=== PATIENT | female | born 1940 | race Caucasian/White ===

== ENCOUNTER → 2016-12-15 | Outpatient (CLI) | payer OTHER ==
[~2016-12-15] MED LIST: ASPIRIN; ZOLP-158 PO
[2016-12-15 09:44] LABS: Urine Bilirubin Negative (Negative); Urine Blood TRACE /uL (Negative); Urine Color Yellow (Yellow); Urine Glucose Normal (Normal); Urine Ketone Negative (Negative); Urine Nitrite Negative (Negative); Urine RBC 2 /hpf (0 - 4); Urine Squamous Epithelial Cell FEW /hpf (<5); Urine Urobilinogen Normal (Negative); Urine pH 5.5 (5.0-8.0)
[2016-12-15 09:57] LABS: Basophils # (auto) 0.1 uL; Basophils % (auto) 0.9 % (0.0-2.0); Eosinophils # (auto) 0.1 uL; Eosinophils % (auto) 2.1 % (0.0-7.0); Hematocrit 39.5 % (36.0-46.0); Lymphocytes # (auto) 1.5 uL; Lymphocytes % (auto) 24.4 % (10.0-50.0); Mean Corpuscular Hemoglobin 29.9 pg (28.0-32.0); Mean Corpuscular Hgb Conc. 32.9 g/dL (32.0-36.0); Mean Corpuscular Volume 90.7 fL (80.0-100.0); Mean Platelet Volume 10.1 fL (7.4-10.4); Monocytes # (auto) 0.5 uL; Monocytes % (auto) 7.7 % (0.0-12.0); Neutrophils % (auto) 64.9 % (37.0-80.0); Platelet Count (auto) 205 10^3/uL (140-450); Red Cell Distribution Width 13.5 % (11.6-16.0); White Blood Cell 6.1 10^3/uL (4.4-10.8)
[2016-12-15 10:00] LABS: Partial Thromboplastin Time 28.7 sec (22.64-33.71); Prothrombin Time 10.8 sec (9.37-12.3)
[2016-12-15 10:03] LABS: Albumin 3.9 g/dL (3.4-5.0); Calcium 8.8 mg/dL (8.5-10.1); Total Protein 7.7 g/dL (6.4-8.2)
[2016-12-15 10:25] LABS: Vitamin B12 879 pg/mL (211-911)
[2016-12-15 10:26] LABS: Temperature: 24.3 C (20.0-25.0)
== END | disposition home or self-care (01) ==
LOC: LAB 09:13
PROVIDERS: ATTEND Internal Medicine
DX: I10 Essential (primary) hypertension (principal); Z01.812 Encounter for preprocedural laboratory examination; E78.00 Pure hypercholesterolemia, unspecified
CPT/HCPCS: 36415; 80053; 80061; 81001; 82043; 82306; 82607; 82746; 84439; 84443; 85025; 85610; 85652; 85730

== ENCOUNTER → 2017-03-17 | Outpatient (CLI) | payer OTHER ==
[2017-03-17 11:43] LABS: Basophils # (auto) 0.1 uL; Basophils % (auto) 0.9 % (0.0-2.0); CONDITION Y; Eosinophils # (auto) 0.1 uL; Eosinophils % (auto) 0.9 % (0.0-7.0); Hematocrit 39.1 % (36.0-46.0); Hemoglobin 13.2 g/dL (12.2-16.2); Lymphocytes # (auto) 1.8 uL; Lymphocytes % (auto) 20.8 % (10.0-50.0); Mean Corpuscular Hemoglobin 31.2 pg (28.0-32.0); Mean Corpuscular Hgb Conc. 33.8 g/dL (32.0-36.0); Mean Corpuscular Volume 92.6 fL (80.0-100.0); Monocytes # (auto) 0.7 uL; Monocytes % (auto) 7.9 % (0.0-12.0); Neutrophils # (auto) 6.1 uL; Neutrophils % (auto) 69.5 % (37.0-80.0); Platelet Count (auto) 225 10^3/uL (140-450); Red Cell Distribution Width 14.3 % (11.6-16.0); White Blood Cell 8.8 10^3/uL (4.4-10.8)
[2017-03-17 11:47] LABS: Urine Bilirubin Negative (Negative); Urine Blood Negative /uL (Negative); Urine Color Yellow (Yellow); Urine Glucose Normal (Normal); Urine Ketone Negative (Negative); Urine Nitrite Negative (Negative); Urine pH 5.5 (5.0-8.0)
[2017-03-17 11:51] LABS: INR 0.98 (0.9-1.15); Partial Thromboplastin Time 28.7 sec (22.64-33.71); Prothrombin Time 10.7 sec (9.37-12.3)
[2017-03-17 12:05] LABS: Albumin 3.8 g/dL (3.4-5.0); BUN/Creatinine Ratio 19.8; Bilirubin, Total 0.7 mg/dL (0.2-1.0); Calcium 8.8 mg/dL (8.5-10.1); Potassium 3.8 mmol/L (3.5-5.1); Total Protein 7.7 g/dL (6.4-8.2)
== END | disposition home or self-care (01) ==
LOC: LAB 11:17
PROVIDERS: ATTEND Specialist
DX: Z01.812 Encounter for preprocedural laboratory examination (principal); Z79.01 Long term (current) use of anticoagulants
CPT/HCPCS: 36415; 80053; 81003; 85025; 85610; 85730

== ENCOUNTER → 2017-05-23 | Outpatient (CLI) | payer OTHER | END | disposition home or self-care (01) | LOC: LAB 10:00 | PROVIDERS: ATTEND Physician Assistant | DX: L57.8 Other skin changes due to chronic exposure to nonionizing radiation (principal) ==

== ENCOUNTER → 2017-11-13 | Outpatient (CLI) | payer OTHER ==
[2017-11-13 09:45] LABS: Basophils # (auto) 0.1 uL; Eosinophils # (auto) 0.2 uL; Eosinophils % (auto) 2.9 % (0.0-7.0); Hematocrit 38.6 % (36.0-46.0); Hemoglobin 12.7 g/dL (12.2-16.2); Lymphocytes # (auto) 1.4 uL; Lymphocytes % (auto) 22.6 % (10.0-50.0); Mean Corpuscular Hemoglobin 30.5 pg (28.0-32.0); Mean Corpuscular Hgb Conc. 32.9 g/dL (32.0-36.0); Mean Corpuscular Volume 92.8 fL (80.0-100.0); Monocytes # (auto) 0.6 uL; Monocytes % (auto) 9.7 % (0.0-12.0); Neutrophils # (auto) 3.9 uL; Neutrophils % (auto) 63.8 % (37.0-80.0); Platelet Count (auto) 197 10^3/uL (140-450); Red Blood Cells 4.16 10^6/uL (4.0-5.20); Red Cell Distribution Width 13.2 % (11.8-14.3); White Blood Cell 6.2 10^3/uL (4.4-10.8)
[2017-11-13 10:07] LABS: Albumin 3.6 g/dL (3.4-5.0); BUN/Creatinine Ratio 20.7; Bilirubin, Total 0.9 mg/dL (0.2-1.0); Calcium 8.5 mg/dL (8.5-10.1); Total Protein 7.5 g/dL (6.4-8.2)
== END | disposition home or self-care (01) ==
LOC: LAB 09:19
PROVIDERS: ATTEND Internal Medicine
DX: I10 Essential (primary) hypertension (principal); L65.9 Nonscarring hair loss, unspecified
CPT/HCPCS: 36415; 80053; 80061; 84439; 84443; 85025

== ENCOUNTER → 2018-08-07 | Outpatient (CLI) | payer OTHER ==
[2018-08-07 09:44] LABS: Alanine Aminotransferase 18 U/L (13-56); Aspartate Aminotransferase 20 U/L (15-37); Cholesterol 193 mg/dL (< 200); HDL Cholesterol 57 mg/dL (40-59); LDL Cholesterol 123 mg/dL (< 100); Triglycerides 138 mg/dL (< 150)
== END | disposition home or self-care (01) ==
LOC: LAB 08:33
PROVIDERS: ATTEND Internal Medicine
DX: E78.00 Pure hypercholesterolemia, unspecified (principal)
CPT/HCPCS: 36415; 80061; 84450; 84460

== ENCOUNTER → 2019-04-02 | Outpatient (CLI) | payer OTHER ==
[2019-04-02 09:29] LABS: Urine Bacteria NONE SEEN /hpf (None Seen); Urine Blood Negative /uL (Negative); Urine WBC 9 /hpf (0 - 5)
[2019-04-02 09:36] LABS: Basophils # (auto) 0.1 uL; Eosinophils # (auto) 0.2 uL; Eosinophils % (auto) 3.6 % (0.0-7.0); Hematocrit 40.2 % (36.0-46.0); Hemoglobin 13.5 g/dL (12.2-16.2); Lymphocytes # (auto) 1.5 uL; Lymphocytes % (auto) 29.3 % (10.0-50.0); Mean Corpuscular Hemoglobin 30.2 pg (28.0-32.0); Mean Corpuscular Hgb Conc. 33.5 g/dL (32.0-36.0); Monocytes # (auto) 0.5 uL; Monocytes % (auto) 9.6 % (0.0-12.0); Neutrophils # (auto) 2.9 uL; Neutrophils % (auto) 56.5 % (37.0-80.0); Nucleated Red Blood Cells % 0.1 %; Platelet Count (auto) 186 10^3/uL (140-450); Red Blood Cells 4.46 10^6/uL (4.0-5.20); Red Cell Distribution Width 14.4 % (11.8-14.3); White Blood Cell 5.2 10^3/uL (4.4-10.8)
[2019-04-02 09:59] LABS: Albumin 3.5 g/dL (3.4-5.0); Potassium 4.2 mmol/L (3.5-5.1)
[2019-04-02 10:05] LABS: BUN/Creatinine Ratio 22.1; Bilirubin, Total 0.6 mg/dL (0.2-1.0); Calcium 8.7 mg/dL (8.5-10.1); Total Protein 7.6 g/dL (6.4-8.2)
== END | disposition home or self-care (01) ==
LOC: LAB 08:56
PROVIDERS: ATTEND Internal Medicine
DX: E78.5 Hyperlipidemia, unspecified (principal); I10 Essential (primary) hypertension
CPT/HCPCS: 36415; 80053; 80061; 81001; 82043; 84439; 84443; 85025; 85652

== ENCOUNTER → 2019-09-18 | Day surgery (SDC) | payer OTHER ==
[2019-09-16 14:46] LABS: Hematocrit 35.2 % (36.0-46.0); Hemoglobin 11.7 g/dL (12.2-16.2); Red Blood Cells 4.09 10^6/uL (4.0-5.20)
[2019-09-16 14:50] LABS: Mean Corpuscular Hemoglobin 28.6 pg (28.0-32.0); Mean Corpuscular Hgb Conc. 33.2 g/dL (32.0-36.0); Mean Corpuscular Volume 86.2 fL (80.0-100.0); Platelet Count (auto) 491 10^3/uL (140-450); Red Cell Distribution Width 13.5 % (11.8-14.3); White Blood Cell 11.4 10^3/uL (4.4-10.8)
[2019-09-16 14:51] LABS: Urine Bacteria NONE SEEN /hpf (None Seen); Urine Blood Negative /uL (Negative); Urine Hyaline Cast MANY /lpf (0 - 2); Urine Mucus FEW (None Seen); Urine Specific Gravity 1.022 (1.001-1.035); Urine WBC 12 /hpf (0 - 5)
[2019-09-16 14:58] LABS: Basophils % (manual) 0 (0.0-2.0); Blast Cells 0; Eosinophils % (manual) 0 (0-7); Myelocytes % 0; Promyelocytes % 0; Reactive Lymphocytes 0
[2019-09-16 15:06] LABS: Albumin 2.6 g/dL (3.4-5.0); Calcium 10.5 mg/dL (8.5-10.1)
[2019-09-16 15:08] LABS: BUN/Creatinine Ratio 23.4
[2019-09-16 15:11] LABS: Bilirubin, Total 0.5 mg/dL (0.2-1.0); Total Protein 8.5 g/dL (6.4-8.2)
[2019-09-16 15:57] LABS: INR 1.11 (0.9-1.15); Partial Thromboplastin Time 30.1 sec (23.64-32.05)
[2019-09-16 16:13] LABS: Band Neutrophils % (manual) 2; Lymphocytes % (manual) 13 (10.0-50.0); Metamyelocytes % 2; Monocytes % (manual) 3 (0-12)
[~2019-09-18] VITALS: Ht 165.1 cm; Wt 63.5 kg
[~2019-09-18] MED LIST changes: +ANAS1TAB7 PO; -ASPIRIN; +DexAMETHasone SOD PHOS 10MG/1ML VIAL INJ ONE; +EZET10TA22 PO; +HEPARIN 1,000 UNITS/ml 1ML VIAL ONE; +HEPARIN SODIUM (PORCINE) 5000 UNITS/ML 1ML VIAL ONE; +LABETALOL HCL 5 MG/ML 4ML SYRINGE IV PRN; +LEVOFLOXACIN 500MG 100 ML IV ONE; +LIDOCAINE 1% HCL (LOCAL ANESTH.) INJ 20ML MDV ONE; +LISI10TA6 PO; +METO25TA93 PO; +MIDAZOLAM HCL 1MG/1ML-2 ML VIAL IV PRN; +MIDAZOLAM HCL 1MG/1ML-2 ML VIAL ONE; +MIRT1TAB38 PO; +ONDANSETRON HCL 4 MG/2 ML VIAL IV PRN; +PROPOFOL 10 MG/ML 20 ML IV ONE; -ZOLP-158 PO; +ceFAZolin 1GM VL ONE; +ePHEDrine SULFATE 50 MG/ML AMP IV PRN; +fentaNYL CITRATE 100 MCG/2 ML VL IV PRN; +fentaNYL CITRATE 100 MCG/2 ML VL ONE
[2019-09-18 10:45] VITALS: BP 160/63
== END | disposition home or self-care (01) ==
LOC: SUR 07:31
PROVIDERS: ATTEND Surgery
DX: Z45.2 Encounter for adjustment and management of vascular access device (principal); C50.512 Malignant neoplasm of lower-outer quadrant of left female breast; I11.0 Hypertensive heart disease with heart failure; I50.9 Heart failure, unspecified; K21.9 Gastro-esophageal reflux disease without esophagitis; Z88.5 Allergy status to narcotic agent; Z88.0 Allergy status to penicillin; Z88.2 Allergy status to sulfonamides; Z88.8 Allergy status to other drugs, medicaments and biological substances; Z17.0 Estrogen receptor positive status [ER+]; Z90.710 Acquired absence of both cervix and uterus; Z79.899 Other long term (current) drug therapy; Z86.73 Personal history of transient ischemic attack (TIA), and cerebral infarction without residual deficits
CPT/HCPCS: 36415; 36561; 80053; 81001; 85007; 85027; 85610; 85730; 93005; C1788; J0690; J1100; J1644; J1956; J2001; J2250; J2704; J3010; J7040; 71045; J3490

== ENCOUNTER 2019-09-20 12:26 | Inpatient (IN) | payer OTHER ==
[~2019-09-20] VITALS: Ht 165.1 cm; Wt 67.2 kg
[~2019-09-20 12:26] MED LIST changes: -DexAMETHasone SOD PHOS 10MG/1ML VIAL INJ ONE; -HEPARIN 1,000 UNITS/ml 1ML VIAL ONE; -HEPARIN SODIUM (PORCINE) 5000 UNITS/ML 1ML VIAL ONE; -LABETALOL HCL 5 MG/ML 4ML SYRINGE IV PRN; -LEVOFLOXACIN 500MG 100 ML IV ONE; -LIDOCAINE 1% HCL (LOCAL ANESTH.) INJ 20ML MDV ONE; -MIDAZOLAM HCL 1MG/1ML-2 ML VIAL IV PRN; -MIDAZOLAM HCL 1MG/1ML-2 ML VIAL ONE; -MIRT1TAB38 PO; -ONDANSETRON HCL 4 MG/2 ML VIAL IV PRN; -PROPOFOL 10 MG/ML 20 ML IV ONE; -ceFAZolin 1GM VL ONE; -ePHEDrine SULFATE 50 MG/ML AMP IV PRN; -fentaNYL CITRATE 100 MCG/2 ML VL IV PRN; -fentaNYL CITRATE 100 MCG/2 ML VL ONE
[2019-09-20] MEDS ORDERED: SODIUM CHLORIDE 0.9% 500 ML IV ONE (12:55)
[2019-09-20 14:02] LABS: Hematocrit 31.7 % (36.0-46.0); Hemoglobin 10.3 g/dL (12.2-16.2); Mean Corpuscular Hemoglobin 27.8 pg (28.0-32.0); Mean Corpuscular Hgb Conc. 32.3 g/dL (32.0-36.0); Mean Corpuscular Volume 86.1 fL (80.0-100.0); Platelet Count (auto) 309 10^3/uL (140-450); Red Blood Cells 3.69 10^6/uL (4.0-5.20); Red Cell Distribution Width 13.4 % (11.8-14.3); White Blood Cell 13.9 10^3/uL (4.4-10.8)
[2019-09-20 14:09] LABS: Basophils % (manual) 0 (0.0-2.0); Blast Cells 0; Eosinophils % (manual) 0 (0-7); Promyelocytes % 0; Reactive Lymphocytes 0
[2019-09-20 14:20] LABS: Albumin 2.4 g/dL (3.4-5.0); Anion Gap 7 (5-15); Blood Urea Nitrogen 27 mg/dL (7-18); Calcium 9.5 mg/dL (8.5-10.1); Carbon Dioxide 27 mmol/L (21-32); Chloride 102 mmol/L (98-107); Glucose 97 mg/dL (74-106); Magnesium 2.3 mg/dL (1.6-2.6); Sodium 136 mmol/L (136-145)
[2019-09-20 14:26] LABS: Alanine Aminotransferase 42 U/L (13-56); Alkaline Phosphatase 143 U/L (45-117); Aspartate Aminotransferase 64 U/L (15-37); BUN/Creatinine Ratio 32.9; Bilirubin, Total 0.3 mg/dL (0.2-1.0); GFR African American 87 mL/min; GFR Non-African American 72 mL/min; Total Protein 7.1 g/dL (6.4-8.2)
[2019-09-20 16:09] LABS: Band Neutrophils % (manual) 5; Lymphocytes % (manual) 7 (10.0-50.0); Metamyelocytes % 2; Monocytes % (manual) 3 (0-12); Myelocytes % 1
[2019-09-20] MEDS ORDERED: ONDANSETRON HCL 4 MG/2 ML VIAL IV ONE (16:30)
[2019-09-20] MEDS ORDERED: MORPHINE SULF INJ 2 MG/ML SYRINGE 1ML IV ONE (16:30)
[2019-09-20] MEDS ORDERED: ACETAMINOPHEN 500 MG TAB PO PRN (17:45)
[2019-09-20] MEDS ORDERED: MORPHINE SULF INJ 2 MG/ML SYRINGE 1ML IV PRN (17:45)
[2019-09-20] MEDS ORDERED: LACTULOSE 20Gm/30ML SOLN PO PRN (17:45)
[2019-09-20] MEDS ORDERED: NITROGLYCERIN 0.4 MG SL TAB SL PRN (17:45)
[2019-09-20] MEDS ORDERED: ONDANSETRON HCL 4 MG/2 ML VIAL IV PRN (17:45)
[2019-09-20 17:50] LABS: Urine Bacteria NONE SEEN /hpf (None Seen); Urine Blood Negative /uL (Negative); Urine Hyaline Cast MOD /lpf (0 - 2); Urine Mucus FEW (None Seen); Urine Specific Gravity 1.021 (1.001-1.035); Urine WBC 4 /hpf (0 - 5)
[2019-09-20] MEDS: SODIUM CHLORIDE 0.9% 1,000 ML IV SCH (18:17)
[2019-09-20 20:00] VITALS: BP 155/77
[2019-09-20] MEDS ORDERED: cefTRIAXone 1GM/50ML D5W 50 ML IV ONE (20:15)
[2019-09-20] MEDS: traMADol HCL 50 MG TAB PO PRN (21:00)
[2019-09-20] MEDS: ATORVASTATIN 20 MG TAB PO SCH (21:00)
[2019-09-20] MEDS ORDERED: MIRT1TAB38 PO (21:37)
[2019-09-20] MEDS: TEMAZEPAM 15 MG CAP PO PRN (22:31)
[2019-09-20 22:40] VITALS: BP 146/77
[2019-09-21] MEDS: SODIUM CHLORIDE 0.9% 1,000 ML IV SCH ×2 (04:30→14:34)
[2019-09-21 05:39] VITALS: BP 140/70
--- NOTE | 2019-09-21 08:10 | NUR ---
URINE FOR URINE CULTURE SENT TO LAB.
[2019-09-21 09:00] VITALS: BP 132/69
[2019-09-21] MEDS: ASPirin 81 mg TAB PO SCH (09:50)
[2019-09-21] MEDS: cefTRIAXone 1GM/50ML D5W 50 ML IV SCH (09:50)
[2019-09-21] MEDS: ENOXAPARIN SOD 40 MG/0.4 ML SYRINGE SC SCH (09:50)
[2019-09-21] MEDS: traMADol HCL 50 MG TAB PO PRN ×2 (09:51→16:08)
--- NOTE | 2019-09-21 10:33 | NUR ---
CALLED DR TERAN, NOTIFIED MD OF CAROTID DOPPLER RESULTS 50 TO 69% OCCLUSION OF ICA, MD AWARE, NO NEW ORDERS.
[2019-09-21 13:00] VITALS: BP 136/68
--- NOTE | 2019-09-21 14:32 | NUR ---
ASKED [facility] CHEMIST TO CALL IN CARDIO AND NEURO CONSULTS. US AWARE.
[2019-09-21 17:00] VITALS: BP 167/79
[2019-09-21] MEDS: LABETALOL HCL 5 MG/ML ML 20ML VIAL IV PRN (17:20)
--- NOTE | 2019-09-21 19:20 | NUR ---
Opening Shift Note Received report from Vangie CASTILLO. Assumed care of patient, awake and alert. Dr. Gomez at bedside. No S/S of distress/SOB or pain. Instructed on POC and to call for assist PRN. Fall precaution measures in place, will continue to monitor for changes Q1hr and PRN.
[2019-09-21 22:00] VITALS: BP_SYST 146; BP_SYST 150; BP_SYST 156; BP_DIAS 70; BP_DIAS 78; BP_DIAS 80
[2019-09-21] MEDS ORDERED: LISINOPRIL 5 MG TAB PO ONE (22:00)
[2019-09-21] MEDS: ATORVASTATIN 20 MG TAB PO SCH (22:18)
[2019-09-22] VITALS (8 sets, daily range): BP systolic 132–183; BP diastolic 67–86
[2019-09-22] MEDS: SODIUM CHLORIDE 0.9% 1,000 ML IV SCH ×3 (00:40→20:05)
[2019-09-22] MEDS: LABETALOL HCL 5 MG/ML ML 20ML VIAL IV PRN (04:34)
[2019-09-22 06:34] LABS: Cholesterol 92 mg/dL (< 200); HDL Cholesterol 36 mg/dL (40-59); LDL Cholesterol 49 mg/dL (< 100); Triglycerides 74 mg/dL (< 150)
--- NOTE | 2019-09-22 07:20 | NUR ---
Opening Shift Note Assumed care of patient, awake and alert. No S/S of distress/SOB or pain. Instructed on POC and to call for assist PRN, will continue to monitor for changes Q1hr and PRN.
[2019-09-22] MEDS: ASPirin 81 mg TAB PO SCH (09:08)
[2019-09-22] MEDS: LISINOPRIL 5 MG TAB PO SCH (09:08)
[2019-09-22] MEDS: cefTRIAXone 1GM/50ML D5W 50 ML IV SCH (09:08)
[2019-09-22] MEDS: ENOXAPARIN SOD 40 MG/0.4 ML SYRINGE SC SCH (09:09)
[2019-09-22] MEDS: LORazepam 0.5 MG TAB PO PRN (10:21)
--- NOTE | 2019-09-22 13:00 | NUR ---
IV removal Left AC and right AC IV's leaking. IVs DC'd with clean sterile technique, catheter fully intact. Pressure dressing applied to site. Patient tolerated well. NOTE: []
--- NOTE | 2019-09-22 13:05 | NUR ---
IV insertion IV access obtained, via clean sterile technique by inserting 22 gauge catheter at right hand after 2 attempts. IV secured properly. No trauma to site. Patient tolerated well. NOTE: []
--- NOTE | 2019-09-22 19:00 | NUR ---
Opening Shift Note Received shift report from Amy CASTILLO. Assumed care of patient, awake and alert. No S/S of distress/SOB. Instructed on POC and to call for assist PRN, will continue to monitor for changes Q1hr and PRN. Bed in lowest locked position, side rails up x2, call light within reach. Will continue to monitor
[2019-09-22] MEDS: traMADol HCL 50 MG TAB PO PRN (19:47)
--- NOTE | 2019-09-22 19:49 | NUR ---
PAIN MANAGEMENT PATIENT STATING PAIN IN BACK. PATIENT REPOSITIONED FOR COMFORT, PAIN MEDICATION ADMINISTERED PER MD ORDER
[2019-09-22] MEDS: ATORVASTATIN 20 MG TAB PO SCH (21:42)
[2019-09-23] VITALS (8 sets, daily range): BP systolic 122–163; BP diastolic 53–87
--- NOTE | 2019-09-23 03:00 | NUR ---
Assumed care of patient Received report from Akilah RN. Patient currently sleeping, even respirations noted. No S/S of distress/SOB or pain. Bed in lowest locked position, call light within reach, side rails up x2, fall precautions in place. Will continue to monitor for changes Q1hr and PRN.
--- NOTE | 2019-09-23 03:04 | NUR ---
CARE ENDORSED TO BRAEDEN
[2019-09-23] MEDS: SODIUM CHLORIDE 0.9% 1,000 ML IV SCH ×3 (05:32→23:25)
--- NOTE | 2019-09-23 07:50 | NUR ---
Morning Note Assumed care of patient, resting with eyes closed. Respirations are even and unlabored. No S/S of distress noted. Bed in lowest position, breaks locked, side rails up x2, call light with in reach, bed alarm on. Will continue to monitor for changes Q1hr and PRN.
[2019-09-23] MEDS: LISINOPRIL 5 MG TAB PO SCH (08:57)
[2019-09-23] MEDS: ASPirin 81 mg TAB PO SCH (08:58)
[2019-09-23] MEDS: ENOXAPARIN SOD 40 MG/0.4 ML SYRINGE SC SCH (08:58)
[2019-09-23] MEDS: traMADol HCL 50 MG TAB PO PRN ×3 (10:23→22:11)
[2019-09-23] MEDS: cefTRIAXone 1GM/50ML D5W 50 ML IV SCH (12:35)
--- NOTE | 2019-09-23 14:21 | NUR ---
assessment Patient is a 79 year old female who is alert and oriented. Prior to admission patient lived home alone and functioned independently. Patient informed me she was walking in the hallway and felt dizzy and then fell on the floor. Patient informed me she did not pass out, but she could not get off the floor until her friend came and helped her up. Patient has a fww and a cane for home use. Patient will need a PT eval to determin her home health needs. Patient informed me she feels safe returning home on discharge. Patients PCP is Dr De Luna. Patient verbalized understanding and agreed to discharge plan home. Addendum: 09/23/19 at 1424 by Miryam AHN Amended: Links added.
--- NOTE | 2019-09-23 16:53 | NUR ---
Patient refusing orthostatic vital signs at this time. Patient educated on importance. Patient verbalized understanding. Patient still refused.
--- NOTE | 2019-09-23 16:53 | NUR ---
EEG-Electroencephalogram completed on 09/23/2019.
[2019-09-23] MEDS: ATORVASTATIN 20 MG TAB PO SCH (22:10)
[2019-09-24] VITALS (7 sets, daily range): BP systolic 122–164; BP diastolic 57–81
[2019-09-24] MEDS: LABETALOL HCL 5 MG/ML ML 20ML VIAL IV PRN (05:25)
--- NOTE | 2019-09-24 07:35 | NUR ---
Opening Shift Note Assumed care of patient, awake and alert. No S/S of distress/SOB or pain reported at this time. Instructed on POC and to call for assist PRN, call light within reach, will continue to monitor for changes Q1hr and PRN.
--- NOTE | 2019-09-24 08:43 | NUR ---
D/C Planning Per consult for safety evaluation. Order was review and approved by ANABELLE Addison. Contact [facility] Ph:) Fax:) faxed medical records. Per Isabella from [facility] patient has been accepted and service to start within 24-48hrs upon d/c day. Faxed medical records with authorization # form to [facility] Fax;). Addendum: 09/24/19 at 0847 by POLO LEVY Amended: Links added.
--- NOTE | 2019-09-24 09:30 | NUR ---
ACTIVITY PT ASSISTED TO BSC, PT TOLERATED ACTIVITY, ASSISTED BACK TO BED, BED ALARM ACTIVATED AND CALL LIGHT WITHIN REACH
[2019-09-24] MEDS: cefTRIAXone 1GM/50ML D5W 50 ML IV SCH (10:11)
[2019-09-24] MEDS: LISINOPRIL 5 MG TAB PO SCH (10:12)
[2019-09-24] MEDS: SODIUM CHLORIDE 0.9% 1,000 ML IV SCH ×2 (11:32→21:45)
[2019-09-24] MEDS: LORazepam 0.5 MG TAB PO PRN (11:40)
--- NOTE | 2019-09-24 12:15 | NUR ---
PT OFF UNIT/TESTING ANALYST PT TAKEN TO TESTING ANALYST VIA BED, PT AXOX4, NO DISTRESS NOTED AT THIS TIME, CONSENTS SIGNED AND VERIFIED, IV PATENT TO RIGHT WRIST, REPORT GIVEN TO KVNG TESTING ANALYST RN
[2019-09-24] MEDS ORDERED: fentaNYL CITRATE 100 MCG/2 ML VL IV ONE (12:30)
[2019-09-24] MEDS ORDERED: LIDOCAINE VISCOUS 2% 15ML UD PO ONE (12:30)
[2019-09-24] MEDS ORDERED: MIDAZOLAM HCL 1MG/1ML-2 ML VIAL IV ONE (12:30)
--- NOTE | 2019-09-24 13:35 | NUR ---
patient was in procedure for 1300 vitals
--- NOTE | 2019-09-24 14:10 | NUR ---
S/P I[facility]AN PT BACK FROM [employer], PT AWAKE AXOX4, NO DISTRESS NOTED, NO C/O PAIN, SOB OR ANY OTHER DISCOMFORT, VS 160/79, P 90, O2 ON 2L VIA NC 98%, RR 18, PAGED REGARDING ELEVATED BP, SPOKE WITH DR TERAN AND ORDERS RECEIVED FOR METOPROLOL SUCC 50MG PO DAILY, RBO AND VERIFIED, CONT CARE
[2019-09-24] MEDS ORDERED: HYDROcodone-ACET 10/325MG TAB PO PRN (17:15)
[2019-09-24] MEDS ORDERED: METOPROLOL SUCCINATE XL 50 MG TAB PO ONE (17:30)
[2019-09-24] MEDS: ASPirin 81 mg TAB PO SCH (17:34)
[2019-09-24] MEDS: ENOXAPARIN SOD 40 MG/0.4 ML SYRINGE SC SCH (17:34)
[2019-09-24] MEDS: ATORVASTATIN 20 MG TAB PO SCH (21:45)
[2019-09-24] MEDS: TEMAZEPAM 15 MG CAP PO PRN (21:45)
[2019-09-25 04:29] VITALS: BP_SYST 133; BP_SYST 148; BP_DIAS 54; BP_DIAS 64
--- NOTE | 2019-09-25 07:15 | NUR ---
Opening Shift Note Assumed care of patient, awake and alert. No S/S of distress/SOB or pain. Instructed on POC and to call for assist PRN, will continue to monitor for changes Q1hr and PRN. call light within reach.
[2019-09-25 08:00] VITALS: BP 159/59
[2019-09-25 08:30] VITALS: BP_SYST 159; BP_SYST 160; BP_DIAS 59; BP_DIAS 80
[2019-09-25] MEDS: cefTRIAXone 1GM/50ML D5W 50 ML IV SCH (09:07)
--- NOTE | 2019-09-25 09:30 | NUR ---
ROUNDS Dr Elvis Powell at bedside for rounds, new orders received and followed through. Patient updated on plan of care, verbalized understanding.
[2019-09-25] MEDS: ASPirin 81 mg TAB PO SCH (09:56)
[2019-09-25] MEDS ORDERED: METOPROLOL SUCCINATE XL 50 MG TAB PO SCH (10:00)
[2019-09-25] MEDS: ENOXAPARIN SOD 40 MG/0.4 ML SYRINGE SC SCH (10:51)
[2019-09-25] MEDS: LISINOPRIL 5 MG TAB PO SCH (10:52)
[2019-09-25 12:54] VITALS: BP 159/59
== END 2019-09-25 14:45 | disposition home health service (06) | DRG 872 ==
LOC: ER 12:26 → EDBD 12:26 → TELE 12:27 → TELE-CENTR 19:59
PROVIDERS: ADMIT Internal Medicine; ATTEND Family Medicine
PROC: B246ZZ4 Ultrasonography of Right and Left Heart, Transesophageal (ICD-10-PCS; principal; 2019-09-24)
DX: A41.9 Sepsis, unspecified organism (principal); G45.9 Transient cerebral ischemic attack, unspecified; N39.0 Urinary tract infection, site not specified; E44.0 Moderate protein-calorie malnutrition; E86.0 Dehydration; C50.919 Malignant neoplasm of unspecified site of unspecified female breast; W18.39XA Other fall on same level, initial encounter; E78.5 Hyperlipidemia, unspecified; M47.892 Other spondylosis, cervical region; Z68.24 Body mass index [BMI] 24.0-24.9, adult; Z90.710 Acquired absence of both cervix and uterus; Z88.2 Allergy status to sulfonamides; Z88.8 Allergy status to other drugs, medicaments and biological substances; Z88.0 Allergy status to penicillin; Y93.89 Activity, other specified; Y92.89 Other specified places as the place of occurrence of the external cause; Y99.8 Other external cause status; Z88.5 Allergy status to narcotic agent
CPT/HCPCS: 36415; 70450; 70551; 72125; 80053; 80061; 81001; 82962; 83735; 84484; 85007; 85027; 87081; 87086; 93005; 93312; 93886; 95819; 97116; 97530; 99152; G0378; J0696; J2250; J2405

== ENCOUNTER 2019-10-04 20:15 | Inpatient (IN) | payer OTHER ==
[~2019-10-04] VITALS: Ht 165.1 cm; Wt 59.7 kg
--- NOTE | 2019-10-04 19:00 | NUR ---
Report from Babita CASTILLO awaiting [facility] admit [facility]
[2019-10-04 19:15] VITALS: BP 108/51
--- NOTE | 2019-10-04 19:17 | NUR ---
[place] TON[place] [facility] [place]
--- NOTE | 2019-10-04 19:45 | NUR ---
Paged at home independent call center agent for admit orders awaiting call back
[~2019-10-04 20:15] MED LIST changes: +MIRT1TAB38 PO
--- NOTE | 2019-10-04 20:20 | NUR ---
Paged Hospitalist Tolu for admit orders awaiting call back
--- NOTE | 2019-10-04 20:30 | NUR ---
Tolu called back, Informed that Direct admit was here at 1917 from [facility], Dr Srivastava admit. for PNA. Tolu stated, " bring me the chart and I will admit her later."
--- NOTE | 2019-10-04 20:45 | NUR ---
QUEENIE Motley at nurses station, Gave patient chart, awaiting orders.
--- NOTE | 2019-10-04 20:50 | NUR ---
Hospitalist at bedside speaking to patient, orders received for STAT Chest X Ray and 12 lead EKG.
[2019-10-04 21:51] VITALS: BP 133/69
[2019-10-04 22:00] VITALS: BP 133/69
--- NOTE | 2019-10-04 22:30 | NUR ---
Tolu calls Nurses station , informed patient requesting sleeping pill, Orders received for 15mg Restoril HS
[2019-10-04 22:32] LABS: Hematocrit 24.8 % (36.0-46.0); Hemoglobin 8.3 g/dL (12.2-16.2); Mean Corpuscular Hemoglobin 27.5 pg (28.0-32.0); Mean Corpuscular Hgb Conc. 33.3 g/dL (32.0-36.0); Mean Corpuscular Volume 82.5 fL (80.0-100.0); Platelet Count (auto) 94 10^3/uL (140-450); Red Blood Cells 3.01 10^6/uL (4.0-5.20)
[2019-10-04 22:42] LABS: Alanine Aminotransferase 20 U/L (13-56); Albumin 1.9 g/dL (3.4-5.0); Anion Gap 5 (5-15); Blood Urea Nitrogen 13 mg/dL (7-18); Calcium 7.6 mg/dL (8.5-10.1); Carbon Dioxide 32 mmol/L (21-32); Chloride 100 mmol/L (98-107); Glucose 94 mg/dL (74-106); Potassium 3.2 mmol/L (3.5-5.1); Sodium 137 mmol/L (136-145)
[2019-10-04 22:47] LABS: Alkaline Phosphatase 100 U/L (45-117); Aspartate Aminotransferase 49 U/L (15-37); BUN/Creatinine Ratio 18.1; Bilirubin, Total 0.4 mg/dL (0.2-1.0); GFR African American 101 mL/min; GFR Non-African American 83 mL/min; Total Protein 5.8 g/dL (6.4-8.2)
[2019-10-04 23:06] LABS: White Blood Cell 1.7 10^3/uL (4.4-10.8)
[2019-10-04 23:08] LABS: Basophils % (manual) 0 (0.0-2.0); Blast Cells 0; Eosinophils % (manual) 0 (0-7); Promyelocytes % 0; Reactive Lymphocytes 0
--- NOTE | 2019-10-04 23:10 | NUR ---
Critical Lab called QUEENIE Motley
--- NOTE | 2019-10-04 23:15 | NUR ---
QUEENIE Motley called back informed og critical WBC of 1.7 and informed of patient VTE assessment score of 3, No new orders at this time.
[2019-10-05 00:01] LABS: Urine Amorphous Crystal FEW /hpf (None Seen); Urine Bacteria FEW /hpf (None Seen); Urine Blood 1+ /uL (Negative); Urine Mucus FEW (None Seen); Urine Specific Gravity 1.015 (1.001-1.035); Urine WBC 20 /hpf (0 - 5)
[2019-10-05 00:04] LABS: Band Neutrophils % (manual) 12; Lymphocytes % (manual) 32 (10.0-50.0); Metamyelocytes % 1; Monocytes % (manual) 11 (0-12); Myelocytes % 1
[2019-10-05] MEDS ORDERED: TEMAZEPAM 15 MG CAP PO PRN (00:45)
[2019-10-05] MEDS ORDERED: NITROGLYCERIN 0.4 MG SL TAB SL PRN (00:45)
[2019-10-05] MEDS ORDERED: MORPHINE SULF INJ 2 MG/ML SYRINGE 1ML IV PRN ×2 (00:45→08:30)
[2019-10-05] MEDS ORDERED: ONDANSETRON HCL 4 MG/2 ML VIAL IV PRN (00:45)
[2019-10-05] MEDS: TEMAZEPAM 15 MG CAP PO PRN (00:47)
[2019-10-05 05:31] VITALS: BP 138/64
--- NOTE | 2019-10-05 06:53 | NUR ---
IV insertion IV access obtained, via clean sterile technique by inserting 20 gauge catheter at left AC after 1 attempt. IV secured properly. No trauma to site. Patient tolerated well.
[2019-10-05] MEDS ORDERED: SODIUM CHLORIDE 0.9% 500 ML IV ONE (07:15)
--- NOTE | 2019-10-05 08:00 | NUR ---
Opening Shift Note Assumed care of patient, who is alert and oriented x4. No S/S of distress/SOB or pain. Bed is low, locked with 2x side rails up. Call light is within reach. Instructed on POC and to call for assist PRN, will continue to monitor for changes Q1hr and PRN.
[2019-10-05 09:00] VITALS: BP 114/0
[2019-10-05 09:31] LABS: White Blood Cell 2.2 10^3/uL (4.4-10.8)
[2019-10-05 09:33] LABS: Hematocrit 25.1 % (36.0-46.0); Hemoglobin 8.3 g/dL (12.2-16.2); Mean Corpuscular Hemoglobin 27.5 pg (28.0-32.0); Mean Corpuscular Hgb Conc. 32.9 g/dL (32.0-36.0); Mean Corpuscular Volume 83.7 fL (80.0-100.0); Platelet Count (auto) 84 10^3/uL (140-450); Red Cell Distribution Width 13.9 % (11.8-14.3)
[2019-10-05 09:40] LABS: Basophils % (manual) 0 (0.0-2.0); Blast Cells 0; Metamyelocytes % 0; Promyelocytes % 0; Reactive Lymphocytes 0
[2019-10-05 09:46] LABS: Calcium 7.4 mg/dL (8.5-10.1); Magnesium 2.1 mg/dL (1.6-2.6); Potassium 3.3 mmol/L (3.5-5.1)
[2019-10-05] MEDS ORDERED: IOHEXOL 350 MG/ML 100ML IJ ONE (09:47)
[2019-10-05 09:50] LABS: BUN/Creatinine Ratio 18.9
[2019-10-05] MEDS ORDERED: LEVOFLOXACIN 750MG 150 ML IV SCH (10:00)
[2019-10-05] MEDS ORDERED: ENOXAPARIN SOD 40 MG/0.4 ML SYRINGE SC SCH (10:00)
[2019-10-05] MEDS: LEVOFLOXACIN 750MG 150 ML IV SCH (10:27)
[2019-10-05] MEDS: SODIUM CHLORIDE 0.9% 1,000 ML IV SCH (10:27)
[2019-10-05] MEDS: FAMOTIDINE 20 MG TAB PO SCH (10:27)
[2019-10-05 11:52] LABS: Band Neutrophils % (manual) 10; Eosinophils % (manual) 2 (0-7); Lymphocytes % (manual) 18 (10.0-50.0); Monocytes % (manual) 11 (0-12)
[2019-10-05 11:53] LABS: Myelocytes % 2
[2019-10-05 13:00] VITALS: BP 120/65
[2019-10-05 17:28] VITALS: BP 134/76
--- NOTE | 2019-10-05 19:21 | NUR ---
Opening Shift Note Assumed care of patient. Patient is awake and alert. No S/S of distress/SOB or pain. Bed is in lowest position with side rails up x 2. Bed brakes are locked and call light is with in reach. HOB is 30 degrees. Instructed on POC and to call for assist PRN, will continue to monitor for changes Q1hr and PRN.
[2019-10-05 22:00] VITALS: BP 145/76
[2019-10-06 05:00] VITALS: BP 150/73
[2019-10-06 05:35] LABS: Hematocrit 22.8 % (36.0-46.0); Mean Corpuscular Volume 83.9 fL (80.0-100.0)
[2019-10-06 05:41] LABS: Hemoglobin 7.6 g/dL (12.2-16.2); Mean Corpuscular Hemoglobin 27.8 pg (28.0-32.0); Mean Corpuscular Hgb Conc. 33.1 g/dL (32.0-36.0); Platelet Count (auto) 95 10^3/uL (140-450); Red Blood Cells 2.72 10^6/uL (4.0-5.20); Red Cell Distribution Width 13.9 % (11.8-14.3); White Blood Cell 3.6 10^3/uL (4.4-10.8)
[2019-10-06 05:46] LABS: BUN/Creatinine Ratio 21.9; Calcium 7.3 mg/dL (8.5-10.1); Potassium 3.5 mmol/L (3.5-5.1)
[2019-10-06 05:50] LABS: Basophils % (manual) 0 (0.0-2.0); Blast Cells 0; Promyelocytes % 0; Reactive Lymphocytes 0
[2019-10-06 06:42] LABS: Band Neutrophils % (manual) 8; Eosinophils % (manual) 3 (0-7); Lymphocytes % (manual) 11 (10.0-50.0); Metamyelocytes % 1; Monocytes % (manual) 14 (0-12); Myelocytes % 1
--- NOTE | 2019-10-06 07:17 | NUR ---
closing notes endorsed care to day shift nurseSarmad.
--- NOTE | 2019-10-06 08:33 | NUR ---
Opening Shift Note Resumed care of patient. Alert and oriented x4. No S/S of distress/SOB or pain. Bed is low, locked with 2x side rails up. Call light is within reach. Instructed on POC and to call for assist PRN, will continue to monitor for changes Q1hr and PRN.
[2019-10-06 09:00] VITALS: BP 139/76
[2019-10-06] MEDS: SODIUM CHLORIDE 0.9% 1,000 ML IV SCH ×2 (09:54→10:01)
[2019-10-06] MEDS: ENOXAPARIN SOD 40 MG/0.4 ML SYRINGE SC SCH (09:55)
[2019-10-06] MEDS: FAMOTIDINE 20 MG TAB PO SCH (09:55)
[2019-10-06] MEDS: LEVOFLOXACIN 750MG 150 ML IV SCH ×2 (09:55→10:00)
[2019-10-06 13:00] VITALS: BP 103/62
[2019-10-06 13:40] LABS: Hemoglobin 8.2 g/dL (12.2-16.2)
[2019-10-06 13:42] LABS: Mean Corpuscular Hemoglobin 27.4 pg (28.0-32.0); Mean Corpuscular Hgb Conc. 32.7 g/dL (32.0-36.0); Mean Corpuscular Volume 83.6 fL (80.0-100.0); Platelet Count (auto) 103 10^3/uL (140-450); Red Blood Cells 2.99 10^6/uL (4.0-5.20); Red Cell Distribution Width 14.3 % (11.8-14.3); White Blood Cell 4.5 10^3/uL (4.4-10.8)
--- NOTE | 2019-10-06 13:43 | NUR ---
NUTRITION CONSULT/ASSESSMENT NOTES Please refer to link notes of nutrition screen form filed under the intervention section of the plan of care for further details. Est. Needs: 1850 kcal to 2150 kcal (30-35 kcal/kgBW), 62 gms to 92 gms pro (1.0-1.5 gms/kgBW d/t CA, severe hypoalbuminemia). Will continue to monitor pertinent labs and reassess nutrient need prn Thank you for this consult. Addendum: 10/06/19 at [address] Amended: Links added.
[2019-10-06 13:45] LABS: Basophils % (manual) 0 (0.0-2.0); Blast Cells 0; Eosinophils % (manual) 0 (0-7); Promyelocytes % 0; Reactive Lymphocytes 0
[2019-10-06 14:05] LABS: Calcium 7.3 mg/dL (8.5-10.1); Potassium 3.5 mmol/L (3.5-5.1)
[2019-10-06 14:10] LABS: BUN/Creatinine Ratio 17.9; Bilirubin, Total 0.4 mg/dL (0.2-1.0); Total Protein 5.5 g/dL (6.4-8.2)
[2019-10-06 14:14] LABS: Band Neutrophils % (manual) 4; Lymphocytes % (manual) 9 (10.0-50.0); Metamyelocytes % 3; Myelocytes % 3
[2019-10-06 14:15] LABS: Monocytes % (manual) 7 (0-12)
[2019-10-06] MEDS ORDERED: DOCUSATE SOD 100 MG CAP PO ONE (14:45)
[2019-10-06 15:09] LABS: % Iron Saturation 37.1 % (15-50)
[2019-10-06] MEDS ORDERED: LACTULOSE 20Gm/30ML SOLN PO ONE (16:15)
[2019-10-06 17:18] VITALS: BP 136/65
--- NOTE | 2019-10-06 20:00 | NUR ---
Opening Shift Note Assumed care of patient, awake and alert. No S/S of distress/SOB or pain. Instructed on POC and to call for assist PRN, will continue to monitor for changes Q1hr and PRN.
[2019-10-06 22:00] VITALS: BP 157/73
[2019-10-06] MEDS: DOCUSATE SOD 100 MG CAP PO SCH (22:00)
[2019-10-06] MEDS: LACTULOSE 20Gm/30ML SOLN PO SCH (22:00)
[2019-10-06] MEDS: TEMAZEPAM 15 MG CAP PO PRN (22:44)
[2019-10-06] MEDS: ACETAMINOPHEN 325 MG TAB PO PRN (22:46)
[2019-10-07] MEDS: SODIUM CHLORIDE 0.9% 1,000 ML IV SCH ×3 (02:52→22:10)
[2019-10-07 05:00] VITALS: BP 149/72
--- NOTE | 2019-10-07 07:18 | NUR ---
Report given to Waldo Parra,patient is resting no distress.
[2019-10-07 09:00] VITALS: BP 152/83
[2019-10-07 09:54] LABS: Ferritin > 1650.0 ng/mL (10-322)
[2019-10-07 09:55] LABS: Folate (Folic Acid) 14.17 ng/mL (5.38-24)
[2019-10-07] MEDS: DOCUSATE SOD 100 MG CAP PO SCH ×2 (10:00→22:00)
[2019-10-07] MEDS: LACTULOSE 20Gm/30ML SOLN PO SCH ×2 (10:00→22:00)
[2019-10-07] MEDS: LEVOFLOXACIN 750MG 150 ML IV SCH (10:17)
[2019-10-07] MEDS: ENOXAPARIN SOD 40 MG/0.4 ML SYRINGE SC SCH (10:17)
[2019-10-07] MEDS: FAMOTIDINE 20 MG TAB PO SCH (10:17)
[2019-10-07] MEDS: Ensure HIGH Protein Chocolate 8oz Bottle PO SCH ×2 (12:09→18:08)
[2019-10-07 13:00] VITALS: BP 154/74
--- NOTE | 2019-10-07 14:57 | NUR ---
assessment re: fara consults Patient is a 79 year old female who is alert and oriented. Prior to admission patient lived home alone and functioned independently, but now needs assistance. Patient informed me she was re-admitted for feeling dizzy and weak. Patient has a fww and a cane for home use. Patient informed me she may need assisted living or board and care on discharge. I provided patient with board and care and assisted living resources. Patient also wanted to speak with someone regarding hospice for info only until she makes up her mind on what she will do on discharge. Claudia from [facility] will meet with patient at bedside to explain hospice at 3pm. Patients PCP is Dr De Luna. Patient verbalized understanding and agreed to discharge plan home. Addendum: 10/07/19 at 1501 by Miryam AHN Amended: Links added.
[2019-10-07] MEDS: MECLIZINE HCL 25 MG TAB PO SCH ×2 (14:58→22:00)
[2019-10-07 16:33] VITALS: BP 158/84
[2019-10-07] MEDS: ACETAMINOPHEN 325 MG TAB PO PRN (18:33)
--- NOTE | 2019-10-07 19:34 | NUR ---
Opening Shift Note Received report and assumed care of patient. Patient is awake and alert. No signs or symptoms of distress noted. Instructed patient on plan of care and to call for assistance as needed. Will continue to monitor.
--- NOTE | 2019-10-07 21:01 | NUR ---
IV removal 20g IV to the Right AC leaking. Discontinued IV with clean technique, catheter tip fully intact. Pressure dressing applied to site. Patient tolerated well. NOTE: Patient has 20g IV to the Left AC in place already.
[2019-10-07 22:00] VITALS: BP 146/62
[2019-10-07] MEDS: TEMAZEPAM 15 MG CAP PO PRN (22:11)
[2019-10-08] MEDS: ACETAMINOPHEN 325 MG TAB PO PRN ×2 (04:10→22:20)
[2019-10-08 05:30] VITALS: BP 154/86
[2019-10-08 05:53] LABS: Hemoglobin 7.6 g/dL (12.2-16.2); Platelet Count (auto) 146 10^3/uL (140-450); Red Cell Distribution Width 14.6 % (11.8-14.3); White Blood Cell 4.6 10^3/uL (4.4-10.8)
[2019-10-08 05:55] LABS: Hematocrit 22.8 % (36.0-46.0); Mean Corpuscular Hgb Conc. 33.1 g/dL (32.0-36.0); Mean Corpuscular Volume 84.6 fL (80.0-100.0)
[2019-10-08 06:08] LABS: Basophils % (manual) 0 (0.0-2.0); Blast Cells 0; Metamyelocytes % 0; Myelocytes % 0; Promyelocytes % 0; Reactive Lymphocytes 0
[2019-10-08 06:10] LABS: Calcium 7.5 mg/dL (8.5-10.1); Potassium 3.1 mmol/L (3.5-5.1)
[2019-10-08 06:13] LABS: BUN/Creatinine Ratio 11.6
[2019-10-08 06:34] LABS: Band Neutrophils % (manual) 4; Eosinophils % (manual) 1 (0-7); Lymphocytes % (manual) 3 (10.0-50.0); Monocytes % (manual) 6 (0-12)
[2019-10-08] MEDS: MECLIZINE HCL 25 MG TAB PO SCH ×3 (07:01→22:19)
[2019-10-08] MEDS: Ensure HIGH Protein Chocolate 8oz Bottle PO SCH ×3 (07:29→17:56)
[2019-10-08 09:00] VITALS: BP 147/77
[2019-10-08] MEDS ORDERED: POTASSIUM EFFERVESENT TAB 25 MEQ PO ONE (10:00)
[2019-10-08] MEDS: DOCUSATE SOD 100 MG CAP PO SCH ×2 (10:00→22:00)
[2019-10-08] MEDS: LACTULOSE 20Gm/30ML SOLN PO SCH ×2 (10:00→22:00)
[2019-10-08] MEDS: FAMOTIDINE 20 MG TAB PO SCH (10:07)
[2019-10-08] MEDS: SODIUM CHLORIDE 0.9% 1,000 ML IV SCH ×2 (10:07→22:45)
[2019-10-08] MEDS: LEVOFLOXACIN 750MG 150 ML IV SCH (10:07)
[2019-10-08] MEDS: APIXABAN 5 MG TAB PO SCH ×2 (10:45→22:20)
--- NOTE | 2019-10-08 12:00 | NUR ---
SS - information Left a message for Miryam in SS regarding patient wanting information on in-home care. Dr. Barron agreed with the patient that she would need extra help at home 27/03 as she lives alone. He also readdressed the need for the patient to move into a facility for 24 hour care. She agreed and said she would speak with her step daughter. Patient also stated she wants to start hospice.
[2019-10-08 13:00] VITALS: BP 144/72
[2019-10-08] MEDS: LORazepam 0.5 MG TAB PO PRN (15:36)
[2019-10-08 16:52] VITALS: BP 157/96
--- NOTE | 2019-10-08 17:03 | NUR ---
re-assessment Patient has decided to return home with 24 hour care after speaking with Dr Barron today. I will meet with patient in the morning to discuss details. Addendum: 10/08/19 at 1704 by Miryam AHN Amended: Links added.
[2019-10-08 17:54] LABS: Hematocrit 26.8 % (36.0-46.0); Hemoglobin 8.9 g/dL (12.2-16.2)
--- NOTE | 2019-10-08 19:29 | NUR ---
Opening Shift Note Received report and assumed care of patient. Patient is awake and alert. No signs or symptoms of distress noted. Family at bedside. Instructed patient on plan of care and to call for assistance as needed. Will continue to monitor.
[2019-10-08 22:00] VITALS: BP 156/80
[2019-10-08] MEDS: TEMAZEPAM 15 MG CAP PO PRN (22:19)
[2019-10-09 05:00] VITALS: BP 162/76
--- NOTE | 2019-10-09 05:55 | NUR ---
Elevated Blood Pressure Patient blood pressure 162/76. Paged Hospitalist. New order for clonidine 0.1mg PO ONCE. Order read back and verified.
[2019-10-09 05:59] LABS: Platelet Count (auto) 171 10^3/uL (140-450); White Blood Cell 4.6 10^3/uL (4.4-10.8)
[2019-10-09] MEDS ORDERED: cloNIDine HCL 0.1 MG TAB PO ONE (06:00)
[2019-10-09 06:02] LABS: Hematocrit 24.4 % (36.0-46.0); Mean Corpuscular Hemoglobin 27.6 pg (28.0-32.0); Mean Corpuscular Volume 83.9 fL (80.0-100.0); Red Cell Distribution Width 14.4 % (11.8-14.3)
[2019-10-09 06:13] LABS: Basophils % (manual) 0 (0.0-2.0); Blast Cells 0; Eosinophils % (manual) 0 (0-7); Reactive Lymphocytes 0
[2019-10-09 06:18] LABS: Calcium 7.5 mg/dL (8.5-10.1); Potassium 3.3 mmol/L (3.5-5.1)
[2019-10-09 06:21] LABS: BUN/Creatinine Ratio 11.1
[2019-10-09] MEDS: MECLIZINE HCL 25 MG TAB PO SCH ×2 (06:29→14:02)
[2019-10-09 06:49] LABS: Band Neutrophils % (manual) 10; Lymphocytes % (manual) 15 (10.0-50.0); Metamyelocytes % 3; Monocytes % (manual) 4 (0-12); Myelocytes % 1; Promyelocytes % 1
[2019-10-09] MEDS: Ensure HIGH Protein Chocolate 8oz Bottle PO SCH ×2 (08:00→12:00)
--- NOTE | 2019-10-09 08:00 | NUR ---
RECEIVED PATIENT ALERT AND ORIENTED X4, NOT IN DISTRESS, CLEAR SOUNDS IN BILATERAL LUNG LOBES, RR=18 SAT 94 TO 95% IN RA, DEEP BREATHING AND COUGHING ENCOURAGED, DEMONSTRATED WELL, SR R=72 ON TELE MONITOR, DENIED CHEST PAIN AND SOB, ABDOMEN SOFT AND ROUND WITH ACTIVE BS, LAST BM=10/08/19 REPORTED, SKIN INTACT WARM TO TOUCH, RADIAL AND PEDAL PULSES PALPABLE, CAP REFILL<3 SECONDS, OB BED REST, RESTING ON BED, DENIED PAIN, HEAD OF BED ELEVATED, BED ON LOW POSITION, RAILS UP X2, CALL LIGHT ON REACH, SS PROCESS FOR D/C PLAN, WILL CONTINUE MONITORING.
[2019-10-09 09:00] VITALS: BP 156/85
[2019-10-09] MEDS: LEVOFLOXACIN 750MG 150 ML IV SCH (10:32)
[2019-10-09] MEDS: LACTULOSE 20Gm/30ML SOLN PO SCH (10:32)
[2019-10-09] MEDS: DOCUSATE SOD 100 MG CAP PO SCH (10:33)
[2019-10-09] MEDS: APIXABAN 5 MG TAB PO SCH (10:33)
[2019-10-09] MEDS: FAMOTIDINE 20 MG TAB PO SCH (10:34)
[2019-10-09] MEDS: SODIUM CHLORIDE 0.9% 1,000 ML IV SCH (11:15)
[2019-10-09] MEDS ORDERED: POTASSIUM EFFERVESENT TAB 25 MEQ PO ONE (11:15)
--- NOTE | 2019-10-09 12:00 | NUR ---
OUT OF BED TO THE CHAIR WITH PT, SAT ON CHAIR FOR ONE HOUR AND BACK TO BED, TOLERATED WELL, PENDING SS PROCESS FOR D/C, SS RONALD WAS CONTACTED FOR FOLLOW UP, RONALD WILL COMMUNICATE WITH MD REPORTED, RESTING ON BED.
[2019-10-09 13:00] VITALS: BP 156/73
[2019-10-09] MEDS: LORazepam 0.5 MG TAB PO PRN (15:37)
[2019-10-09 16:24] VITALS: BP 134/67
--- NOTE | 2019-10-09 16:30 | NUR ---
DR. HOFFMANN WAS CONTACTED WITH DAUGHTER IN LAW REQUESTED FOR D/C HOME PLANS, PENDING D/C HOME TODAY ORDERED.
[2019-10-09 17:00] VITALS: BP 116/84
--- NOTE | 2019-10-09 18:36 | NUR ---
D/C INSTRUCTIONS AND FOLLOW UP INFORMATION EDUCATION PROVIDED, VERBALIZED UNDERSTANDING, PATIENT WILL FOLLOW WITH HOSPICE AT HOME REPORTED, D/C TELE AND IV SITE TOLERATED WELL, VS T=98.1 RR=18 SAT=95% P=75 BL=788/68, NOT IN DISTRESS, DENIED PAIN, D/C HOME ON WC ACCOMPANIED BY FAMILY MEMBERS, TOOK ALL BELONGINGS AND LEFT NOTHING BEHIND.
[2019-10-15] MEDS ORDERED: APIXABAN 5 MG TAB PO SCH (10:00)
== END 2019-10-09 18:15 | disposition home or self-care (01) | DRG 871 ==
LOC: TELE-WESTW 20:15
PROVIDERS: ADMIT Internal Medicine; ATTEND Internal Medicine
DX: A41.9 Sepsis, unspecified organism (principal); E43 Unspecified severe protein-calorie malnutrition; D61.810 Antineoplastic chemotherapy induced pancytopenia; J18.1 Lobar pneumonia, unspecified organism; B37.0 Candidal stomatitis; I82.431 Acute embolism and thrombosis of right popliteal vein; J91.0 Malignant pleural effusion; E78.5 Hyperlipidemia, unspecified; E86.0 Dehydration; Z51.5 Encounter for palliative care; C50.912 Malignant neoplasm of unspecified site of left female breast; H83.09 Labyrinthitis, unspecified ear; E87.6 Hypokalemia; T45.1X5A Adverse effect of antineoplastic and immunosuppressive drugs, initial encounter; Z68.21 Body mass index [BMI] 21.0-21.9, adult; Z88.1 Allergy status to other antibiotic agents; Z88.0 Allergy status to penicillin; Z88.2 Allergy status to sulfonamides; Z88.8 Allergy status to other drugs, medicaments and biological substances; Z79.01 Long term (current) use of anticoagulants; Z82.49 Family history of ischemic heart disease and other diseases of the circulatory system; Z86.73 Personal history of transient ischemic attack (TIA), and cerebral infarction without residual deficits; Z90.710 Acquired absence of both cervix and uterus; Z85.3 Personal history of malignant neoplasm of breast; Y92.89 Other specified places as the place of occurrence of the external cause
CPT/HCPCS: 36415; 71045; 71275; 80048; 80053; 81001; 82607; 82728; 82746; 83540; 83550; 83605; 83735; 83880; 84484; 85007; 85014; 85018; 85027; 85379; 87040; 87081; 87086; 93970; G0378; J1956

== ENCOUNTER → 2019-11-14 | Outpatient (CLI) | payer OTHER ==
[~2019-11-14] MED LIST changes: -ANAS1TAB7 PO; -LISI10TA6 PO; -METO25TA93 PO
[2019-11-14 13:13] LABS: Hematocrit 35.4 % (36.0-46.0); Hemoglobin 11.2 g/dL (12.2-16.2); Mean Corpuscular Hemoglobin 27.6 pg (28.0-32.0); Mean Corpuscular Hgb Conc. 31.6 g/dL (32.0-36.0); Mean Corpuscular Volume 87.2 fL (80.0-100.0); Platelet Count (auto) 272 10^3/uL (140-450); Red Blood Cells 4.05 10^6/uL (4.0-5.20); Red Cell Distribution Width 19.6 % (11.8-14.3); White Blood Cell 9.3 10^3/uL (4.4-10.8)
[2019-11-14 13:19] LABS: Basophils % (manual) 0 (0.0-2.0); Blast Cells 0; Eosinophils % (manual) 0 (0-7); Metamyelocytes % 0; Myelocytes % 0; Promyelocytes % 0; Reactive Lymphocytes 0
[2019-11-14 13:40] LABS: Calcium 10.1 mg/dL (8.5-10.1); Potassium 3.9 mmol/L (3.5-5.1)
[2019-11-14 13:44] LABS: BUN/Creatinine Ratio 19.8; Bilirubin, Total 0.8 mg/dL (0.2-1.0); Total Protein 8.2 g/dL (6.4-8.2)
[2019-11-14 13:55] LABS: Band Neutrophils % (manual) 2; Lymphocytes % (manual) 6 (10.0-50.0); Monocytes % (manual) 10 (0-12)
== END | disposition home or self-care (01) ==
LOC: LAB 12:57
PROVIDERS: ATTEND Internal Medicine
DX: C80.1 Malignant (primary) neoplasm, unspecified (principal)
CPT/HCPCS: 36415; 80053; 83615; 85007; 85027; 86300